=== PATIENT | male | born 1940 | race Caucasian/White ===

== ENCOUNTER 2016-11-22 20:27 | Observation (INO) | payer MEDICARE, BC ==
[~2016-11-22 20:27] MED LIST: ADVIL200 M3 PO; ASPIRIN EC81 MG PO; BACTRIM DS TAB1 EAC2 PO; DEMADEX20 M1 PO; DEMADEX20 MG; HYZAAR 50-12.51 EACH PO; LASIX40 M1 PO; METFORMIN HCL500 M3 PO; MOTRIN800 MG PO; MUPIROCIN22 G2 TP; NORCO 5-325 TA1 EACH PO; NORCO 5/325 TAB1 TAB PO; NYSTATIN1 EA10 TOP; POTASSIUM CHLO20 ME3 PO; PREDNISONE20 MG PO; TORSEMIDE20 MG; TRAMADOL HCL50 M2 PO; TRICOR145 M2 PO; VICTOZA 3-0.6 MG/0.2 SC; XARELTO15 M1 PO
[2016-11-22 21:32] LABS: BASO % 0.1 % (0-2); EOS % 1.8 % (0-7); EOSINOPHIL ABSOLUTE COUNT 0.1 tho/cmm (0.0-0.7); HCT-HEMATOCRIT 43.3 % (36.0-53.5); HGB-HEMOGLOBIN 14.6 gm/dl (13.5-17.0); IMMATURE GRANULOCYTES ABSOLUTE 0.03 tho/cmm (0-0.03); IMMATURE GRANULOCYTES PERCENT 0.4 % (0-0.3); LYMPH % 20.5 % (20-45); LYMPH ABSOLUTE COUNT 1.4 tho/cmm (0.8-4.5); MCH (MEAN CORPUSCULAR HGB) 31.9 pg (28.0-32.0); MCHC MEAN CORPUSCULAR HGB CONC 33.7 % (32.0-36.0); MCV (MEAN CELL VOLUME) 94.5 fl (82.0-96.0); MEAN PLATELET VOLUME 9.8 cmc (9.4-12.4); MONO % 9.2 % (0-12); MONOCYTE ABSOLUTE COUNT 0.6 tho/cmm (0.0-1.2); NEUTROPHIL ABSOLUTE COUNT 4.6 tho/cmm (1.6-8.0); NEUTROPHIL-AUTOMATED 4.6 tho/cmm (1.6-8.0); PLATELET COUNT 238 tho/cmm (150-450); RED BLOOD COUNT 4.58 mil/cmm (4.40-5.70); RED CELL DISTRIBUTION WIDTH 13.2 % (12.4-16.4); WHITE BLOOD COUNT 6.8 tho/cmm (4.0-10.0)
[2016-11-22 21:48] LABS: ANION GAP 14 mmol/L (0-20); BLOOD UREA NITROGEN 14 mg/dl (6-24); CALCIUM 8.2 mg/dl (8.5-10.5); CARBON DIOXIDE-VENOUS 26 mmol/L (22-32); CHLORIDE 105 mmol/l (96-110); CREATININE 0.77 mg/dl (0.60-1.30); GLUCOSE 324 mg/dL (70-110); SODIUM 140 mmol/L (135-145); eGFR VALUE FOR BLACK >90 mL/Min
[2016-11-22 21:49] LABS: POTASSIUM 4.6 mmol/L (3.7-5.1)
[2016-11-23] MEDS ORDERED: LUBRICANT EACH EYE (17:54)
[2016-11-24 07:01] LABS: BLOOD UREA NITROGEN 13 mg/dl (6-24); CALCIUM 8.5 mg/dl (8.5-10.5); CARBON DIOXIDE-VENOUS 30 mmol/L (22-32); CHLORIDE 104 mmol/l (96-110); CHOLESTEROL 126 mg/dl (120-200); CREATININE 0.76 mg/dl (0.60-1.30); GLUCOSE 220 mg/dL (70-110); HDL CHOLESTEROL 39 mg/dl (40-60); LDL CHOLESTEROL 50 mg/dl (0-99); SODIUM 141 mmol/L (135-145); VLDL 37 mg/dl (0-30); eGFR VALUE FOR BLACK >90 mL/Min
[2016-11-24 07:04] LABS: ANION GAP 11 mmol/L (0-20); POTASSIUM 4.2 mmol/L (3.7-5.1); TRIGLYCERIDES 186 mg/dl (<149)
== END 2016-11-24 14:35 ==
LOC: EDMED 20:27 → EMR2 11-23 01:33 → CAR1 11-23 02:02
PROVIDERS: Emergency Medicine; Physician Assistant Medical; ADMIT Internal Medicine Cardiovascular Disease
PROC: 05HF33Z Insertion of Infusion Device into Left Cephalic Vein, Percutaneous Approach (ICD-10-PCS; 2016-11-23)
PROC: 4A023N7 Measurement of Cardiac Sampling and Pressure, Left Heart, Percutaneous Approach (ICD-10-PCS; principal; 2016-11-24)
PROC: B2111ZZ Fluoroscopy of Multiple Coronary Arteries using Low Osmolar Contrast (ICD-10-PCS; 2016-11-24)
DX: R07.9 Chest pain, unspecified (principal); I11.9 Hypertensive heart disease without heart failure; E78.5 Hyperlipidemia, unspecified; E11.65 Type 2 diabetes mellitus with hyperglycemia; I89.0 Lymphedema, not elsewhere classified; G47.33 Obstructive sleep apnea (adult) (pediatric); E66.01 Morbid (severe) obesity due to excess calories; Z68.43 Body mass index [BMI] 50.0-59.9, adult; Z79.82 Long term (current) use of aspirin; Z79.84 Long term (current) use of oral hypoglycemic drugs; Z79.899 Other long term (current) drug therapy; Z87.891 Personal history of nicotine dependence; Z86.718 Personal history of other venous thrombosis and embolism; Z85.46 Personal history of malignant neoplasm of prostate; Z90.79 Acquired absence of other genital organ(s); Z99.89 Dependence on other enabling machines and devices
CPT/HCPCS: A9500; C1751; C1887; C1894; C8929; G0378; G8978-GP-CI; G8979-GP-CI; G8980-GP-CI; J1644; J1815; J2270; J2785; J7030; Q9967